=== PATIENT | male | born 1965 | race Caucasian/White ===

== ENCOUNTER 2017-05-23 10:32 | Observation (INO) | payer OTHER ==
[2017-05-23] VITALS (7 sets, daily range): BP systolic 163–192; BP diastolic 75–114
[~2017-05-23] VITALS: Ht 165.1 cm; Wt 60.6 kg
[~2017-05-23 10:32] MED LIST: MIRALAX17 GM/PACK PO
--- NOTE | 2017-05-23 10:40 | Emergency Room Report ---
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 N Clinical Suspician of Infection? N Mental Status: 1 - Regular (Normal Baseline) Sepsis Risk:Low Sepsis Risk Have you (or family members/close friends) recently traveled outside the [place]? N If Yes, where/when: Have you had exposure to infectious disease within the past month? TB? Other? Specify: Comment The patient is brought in by ambulance from the [facility]. He says he went there to get a note for missing work. He says that he has had a headache since yesterday and called into work because of that. No trauma or falls. No nausea or vomiting. No numbness or weakness. Today he has also gotten the shakes. He drinks 1 pint of alcohol a day and has not had any today, but says he normally does not get shaky when he does not drink. Does not use drugs. He is on 2 blood pressure medications. He says he ran out of one 2 weeks ago and therefore has only been taking 1 medication for the past 2 weeks. He is also on medication for depression. ALLERGIES Coded Allergies: No Known Allergies (05/23/17) Home Medications Reported Medications Lisinopril 10 MG PO DAILY #30 Propranolol Hcl (Inderal 20MG. Tablet) 20 MG PO TID #90 Polyethylene Glycol 3350 (Miralax) 17 GM PO Q48H History Medical History General Angina: No AL: No Hypertension? Yes Hyperlipidemia? No CHF? No COPD? No Asthma? No Hernia? Yes CVA? No Seizures? No Diabetes? No UTI? No Stones? No GB Disease: No Hepatitis? No Cataracts? No Glaucoma? No MRSA? No TB? No Cancer? No Immunization Hx Ped.Immunizations UTD Yes DT/Tetanus > 10 YRS Flu NEVER Pneumonia NEVER Surgical Hx Previous Surgery?N Family History Family Hx Diabetes No CAD No Hypertension Yes Hyperlipidemia No Cancer Yes TB No Social History Smoking Hx Smoker: Current Every Day Smoker Tobacco: Yes Type Cigarettes Packs/day < 1 Pack Alcohol Alcohol: Yes Review of Systems All Other Systems Reviewed and Negative Constitutional denies fever Respiratory denies shortness of breath Cardiovascular denies chest pain Gastrointestinal denies abdominal pain, denies nausea, denies vomiting Psychiatric/Neurological headache, tremors Physical Exam Vital Signs Vital Signs Date Time Temp Pulse Resp B/P Pulse O2 O2 Flow FiO2 Ox Delivery Rate 05/23 1456 98.3 67 18 169/75 99 05/23 1452 67 18 169/75 99 05/23 1423 18. 05/23 1415 90 18 172/81 97 05/23 1345 90 18 160/89 97 05/23 1227 76 18 161/98 97 05/23 1158 76 18 164/98 97 05/23 1126 76 18 205/116 97 05/23 1108 18 05/23 1055 76 18 195/137 97 05/23 1035 98.3 72 18 192/102 97 General Appearance very tremulous and restless Eye Exam - bilateral eye normal exam, bilateral eye PERRL, bilateral eye EOMI Ear, Nose, Throat hearing grossly normal, normal ENT inspection Neck normal inspection, non-tender, supple, full range of motion Respiratory Status Yes: trachea midline, chest symmetrical. No: respiratory distress. Lung Sounds bilateral: normal breath sounds, lungs clear. Cardiovascular normal exam, regular rate/rhythm, no peripheral edema, no gallop, no JVD, no murmur, no rub, normal peripheral pulses Peripheral Pulses Pulses normal Yes Gastrointestinal normal bowel sounds, normal exam, non tender, soft, no organomegaly Extremities non-tender, normal range of motion, normal inspection Neurologic alert, measurement coordinator II-XII nml as tested, normal exam, no motor/sensory deficits, oriented x 3 Mental status anxious Skin intact, normal color, warm/dry Medical Decision Making LABS/Meds/Orders Pt receiving controlled substance in ED? Yes Luis was queried for this patient? No Reason not queried - emergent pt cond=no time Results/Orders Laboratory Tests 05/23/17 1030: Sodium 134 L, Potassium 4.7, Chloride 96 L, Carbon Dioxide 28, BUN 21 H, Creatinine 0.9, Estimated Creat Clear 86, Estimated GFR (MDRD) 88, Glucose 123 H, Calcium 8.8, Total Bilirubin 0.7, AST 46 H, ALT 38, Alkaline Phosphatase 155 H, Creatine Kinase 57, CK-MB (CK-2) Rel Index 0.9, CK and CKMB Interp < 0.5, Troponin I < 0.02, Total Protein 9.0 H, Albumin 3.9, Globulin 5.1 H, Albumin/ Globulin Ratio 0.8 L, WBC 7.1, RBC 4.37 L, Hgb 14.2, Hct 42.1, MCV 96.4, RDW 13.7, Plt Count 36 *L, MPV 8.9, Gran % 78.1, Gran # 5.6, Lymphocytes % 12.5, Monocytes % 7.8, Eosinophils % 1.0, Basophils % 0.6, Lymphocytes # 0.9, Monocytes # 0.6, Eosinophils # 0.1, Basophils # 0.0, PUBS MCHC 33.7, MCH 32.5 H Current Medication Orders Sig/Zita Start time Last Medication Dose Route Stop Time Status Admin Oxazepam 15 MG Q6 05/25 0500 UNV PO Folic Acid 1 MG DAILY 05/24 0900 UNV PO 05/26 09 Lisinopril 10 MG DAILY 05/24 0900 UNV PO Multivitamins 1 EACH DAILY 05/24 0900 UNV PO Multivitamins 10 ML DAILY 05/24 0900 UNV Thiamine HCl 100 MG IV Magnesium Sulfate 2 GM Lactated Ringer's 1,000 ML Thiamine HCl 100 MG DAILY 05/24 0900 UNV PO 05/26 0901 Propranolol HCl 20 MG TID 05/23 2100 UNV PO Oxazepam 30 MG Q6 05/23 1700 UNV PO 05/25 1101 Folic Acid 1 MG ONCE ONE 05/23 1500 UNV PO 05/23 1501 Miscellaneous 1 UNIT ONCE ONE 05/23 1500 UNV Medication XX 05/23 1501 Nicotine 21 MG DAILYP PRN 05/23 1500 UNV TD Sodium Chloride 1,000 ML .Q10H 05/23 1500 UNV IV Sodium Chloride 10 ML PRN PRN 05/23 1500 UNV IV Lorazepam 0 .STK-MED ONE 05/23 1418 DC .ROUTE Lorazepam 1 MG ONCE ONE 05/23 1345 DC 05/23 IV 05/23 1346 1423 Lorazepam 0 .STK-MED ONE 05/23 1107 DC .ROUTE Lorazepam 1 MG ONCE ONE 05/23 1100 DC 05/23 IV 05/23 1101 1108 Sodium Chloride 10 ML PRN PRN 05/23 1045 AC IV 05/24 1039 Orders Procedure Date/time Status DIET-NOTHING BY MOUTH 05/23 L Complete DIET-REGULAR ( TOLERATED) 05/23 D Active Decision to admit 05/23 1424 Active ELECTROCARDIOGRAM REQUEST 05/[address] HEAD REQ 05/23 1039 Complete IV SALINE LOCK 05/23 1039 Active CBC WITH AUTO DIFF 05/23 1039 Complete CARDIAC ENZYMES 05/23 1039 Complete CHEM 12 PROFILE 05/23 1039 Complete ADMIT PATIENT 05/23 UNK Active 12 LEAD EKG-MACI (INITIAL) 05/23 UNK Active VITAL SIGNS 05/23 UNK Active IV SALINE LOCK 05/23 UNK Active INSTRUCT PT/FAMILY 05/23 UNK Active GEN NSG/PT REQ (NOT FOR MEDS!) 05/23 UNK Active CODE STATUS 05/23 UNK Active PATIENT ACTIVITY ORDER 05/23 UNK Active URINALYSIS/COMPLETE 05/23 UNK Active PROTIME/PARTIAL PROTIME 05/23 UNK Active PHOSPHORUS 05/23 UNK Active MAGNESIUM 05/23 UNK Active FOLIC ACID (FOLATE, SERUM) 05/23 UNK Active DRUG ABUSE SCREEN (TRIAGE) 05/23 UNK Active ALCOHOL 05/23 UNK Active CM/EKG CM/EKG Comments EKG interpreted by Arpan Reid MD: Rhythm: sinus Rate: 71 [place]: normal Ectopy: none Conduction: normal ST Segment Changes: none T Wave Changes: none Q Waves: none No evidence of acute ischemia or injury Baseline artifact and wander present, but I consider the EKG adequate for accurate interpretation. XRAY/CT/US XRAY/CT/US XRAY chest Comment Chest x-ray interpreted by Arpan Reid M.D. No infiltrate, pneumothorax, pleural effusion, or wide mediastinum. Calcified granulomas, no acute process CT head Comment CT scan interpreted by radiologist: Negative Progress - 1:45 PM: The patient feels better. Tremulousness almost completely gone. Blood pressure remains elevated. 2:20 PM: I have discussed the case with Dr. Canela who agrees to admit the patient to the hospital. We discussed the patient's clinical information, including history, exam, laboratory and radiology results and ED course. Per hospital procedure, I will write temporary bridge inpatient orders on the patient. Specific orders requested by the admitting physician: Serax withdrawal protocol. Rally pack. Hydration. Continue current blood pressure medications. Departure Departure Disposition Still a Patient Clinical Impression Primary Impression: Alcohol withdrawal Qualifiers: Complication of substance-induced condition: uncomplicated Qualified Code: F10.230 - Alcohol dependence with withdrawal, uncomplicated Secondary Impressions: Hypertension Qualifiers: Hypertension type: essential hypertension Qualified Code: I10 - Essential (primary) hypertension Noncompliance with medication regimen Condition STABLE ED Critical Care Critical Care No at 1876
[2017-05-23 10:45] LABS: HEMOGLOBIN 14.2 g/dL (14.1-18.0)
[2017-05-23 10:46] LABS: LYMPH # 0.9 K/mm3 (0.7-4.5); LYMPH % 12.5 % (10-50)
[2017-05-23] MEDS ORDERED: INDERAL 20MG. T20 MG PO (10:56)
[2017-05-23] MEDS ORDERED: LISINOPRIL10 MG PO (10:56)
[2017-05-23 11:05] LABS: BUN 21 mg/dL (7-18); GFR (ESTIMATED) 88 ML/MIN (>60)
--- NOTE | 2017-05-23 14:49 | RADIOLOGY REPORT PS360 ---
CT HEAD W/O CONTRAST HISTORY: Severe headache HYPERTENSIVE,HEADACHE ORDERING PHYSICIAN: Arpan Reid MD PATIENT AGE: 52 years COMPARISON: None TECHNIQUE: Axial images obtained without contrast. Brain and bone windows reviewed. FINDINGS: No midline shift, mass effect, intracranial hemorrhage, hydrocephalus, or extra-axial fluid collection is evident. There is mild generalized atrophy. No intra or extra-axial hemorrhage is evident. The calvarium has an unremarkable appearance. No mastoid effusion. The visualized paranasal sinuses are unremarkable. IMPRESSION: IMPRESSION: 1. No acute intracranial findings. 2. Mild prominence of the sulci suggesting volume loss/atrophy
--- NOTE | 2017-05-23 15:03 | RADIOLOGY REPORT PS360 ---
CHEST-PORTABLE HISTORY: Hypertension, smoker HEADACHE WITH HYPERTENSION ORDERING PHYSICIAN: Arpan Reid MD PATIENT AGE: 52 years COMPARISON: None available FINDINGS: Unremarkable heart size. Hyperinflation with attenuation of the peripheral pulmonary vessels consistent with COPD. There is evidence of old granulomatous disease with a calcified granuloma in the right lower lung zone and one in the left upper lobe. No acute bony anomalies. Probable nipple shadow left mid to lower lung zone IMPRESSION: COPD with old granulomatous disease
[2017-05-23] MEDS ORDERED: MIRTAZAPINE15 MG PO (15:40)
--- NOTE | 2017-05-23 16:00 | PHARMACY CLINIC NOTE ---
Patient Demographics Patient Demographics Admission date: 05/23/17 Date: 05/23/17 Time: 1559 Allergies Coded Allergies: No Known Allergies (05/23/17) HEIGHT- FT: 5 IN: 5.00 K.864 VTE General Information Labs: Laboratory Tests 05/23 1030 Hematology Hgb (14.1 - 18.0 g/dL) 14.2 Hct (42.0 - 52.0 %) 42.1 Plt Count (142 - 424 K/mm3) 36 *L Disclaimer The following section includes nursing documentation that has been pulled in for pharmacy review. Patient's VTE score: 1 Patient's VTE Risk: VERY LOW RISK Clinical trial participant? No VTE prophylaxis F [id number] VTE prophylaxis ordered? Yes Type of prophylaxis/treatment: PREM at [id number]
[2017-05-23 16:38] LABS: URINE BILIRUBIN - DIPSTICK NEGATIVE (NEG); URINE BLOOD TRACE-INTACT (NEG)
[2017-05-23 16:55] LABS: AMPHETAMINES/METAMPHETAMINES NEGATIVE ng/mL (<1000)
--- NOTE | 2017-05-23 17:47 | HISTORY AND PHYSICAL REPORT ---
Demographics: Admit date: 05/23/17 Chief complaint: High blood pressure PRIMARY DIAGNOSIS: ALCOHOL WITHDRAWAL Allergies: Coded Allergies: No Known Allergies (05/23/17) History of present illness: History of present illness: The patient is brought in by ambulance from the [facility]. He says he went there to get a note for missing work. He says that he has had a headache since yesterday and called into work because of that. No trauma or falls. No nausea or vomiting. No numbness or weakness. Today he has also gotten the shakes. He drinks 1 pint of alcohol a day and has not had any today, but says he normally does not get shaky when he does not drink. Does not use drugs. He is on 2 blood pressure medications. He says he ran out of one 2 weeks ago and therefore has only been taking 1 medication for the past 2 weeks. He is also on medication for depression. Above note per ER physician. When I discussed case with patient he states he's been off alcohol for about a week. Interestingly, his alcohol level remains detectable. Patient feels much better after some beta cherri, IV fluids and intravenous Ativan. Patient is eating supper vigorously. Past medical history: Family HX Diabetes No CAD No Hypertension Yes Hyperlipidemia No Cancer Yes TB No Immunization HX Ped.Immunizations UTD Yes DT/Tetanus > 10 YRS Flu NEVER Pneumonia NEVER TB Test in last year No General CAD? No Angina: No LA: No Hypertension? Yes Hyperlipidemia? No CHF? No DVT? No PE? No COPD? No Asthma? No Anemia? No GERD? No Gastric ulcers? No GI Bleed? No Hernia? Yes Thyroid Problems? No Hypothyroidism? No CVA? No Seizures? No Diabetes? No Renal Insuffiency? Yes UTI? No Stones? No BPH? No GB Disease: No Nephritic Syndrome? No Asplenia? No Hepatitis? No Sickle Cell Disease? No Arthritis? No Migraines? No Cataracts? No Glaucoma? No MRSA? No HIV? No TB? No Anxiety? No Depression? No Cancer? No More? Yes Additional hx: ALCOHOLIC Past Surgical HX Previous Surgery?Y BOWEL RESECTION Current home meds: Reported Medications Lisinopril 10 MG PO DAILY #30 Propranolol Hcl (Inderal 20MG. Tablet) 20 MG PO TID #90 Polyethylene Glycol 3350 (Miralax) 17 GM PO Q48H Mirtazapine 15 MG PO DAILY Social Hx: Smoking HX Tobacco Yes Type Cigarettes Packs/day 1 1/2 - 2 PACKS Are you/the child exposed to second-hand smoke: Yes Alcohol Alcohol: Yes How much do you drink 1 PINT For how long 2-5 Years When was your last drink 24-48 Hours Ago Hx of Drug Use Drug Use? No Patien't marital status is Patient's support system is good Review of systems: Constitutional malaise, weakness, other. No: fever. Respiratory No: no symptoms reported. Cardiovascular see HPI Gastrointestinal/Abdominal No no symptoms reported Genitourinary No: no symptoms reported. Musculoskeletal No: no symptoms reported. Neurological Yes: headache, tingling, tremors, weakness. Exam: Lab data for last 24 hours: Laboratory Tests 05/23/17 1625: Opiates Screen NEGATIVE, Urine Methadone Screen NEGATIVE, Barbiturates NEGATIVE, Phencyclidine Screen NEGATIVE, Amphetamines Screen NEGATIVE, Benzodiazepines Screen NEGATIVE, Cocaine Screen NEGATIVE, Marijuana (THC) Screen NEGATIVE, Urine Color DK YELLOW, Urine Appearance CLEAR, Urine pH 8.5, Ur Specific [place] 1.020 , Urine Protein 1+ H, Urine Ketones NEGATIVE, Urine Blood TRACE-INTACT, Urine Nitrate NEGATIVE, Urine Bilirubin NEGATIVE, Urine Urobilinogen 1.0, Ur Leukocyte Esterase NEGATIVE, Urine RBC OCC, Urine WBC OCC, Urine Bacteria 1+, Urine Mucus 1+, Urine Glucose NEGATIVE 05/23/17 1030: Phosphorus 3.3, Magnesium 1.4 05/23/17 1030: Sodium 134 L, Potassium 4.7, Chloride 96 L, Carbon Dioxide 28, BUN 21 H, Creatinine 0.9, Estimated Creat Clear 86, Estimated GFR (MDRD) 88, Glucose 123 H, Calcium 8.8, Total Bilirubin 0.7, AST 46 H, ALT 38, Alkaline Phosphatase 155 H, Creatine Kinase 57, CK-MB (CK-2) Rel Index 0.9, CK and CKMB Interp < 0.5, Troponin I < 0.02, Total Protein 9.0 H, Albumin 3.9, Globulin 5.1 H, Albumin/ Globulin Ratio 0.8 L, PT 10.2, INR 0.94, APTT 29.1, WBC 7.1, RBC 4.37 L, Hgb 14.2, Hct 42.1, MCV 96.4, RDW 13.7, Plt Count 36 *L, MPV 8.9, Gran % 78.1, Gran # 5.6, Lymphocytes % 12.5, Monocytes % 7.8, Eosinophils % 1.0, Basophils % 0.6, Lymphocytes # 0.9, Monocytes # 0.6, Eosinophils # 0.1, Basophils # 0.0, PUBS MCHC 33.7, MCH 32.5 H, Alcohols 15 Admission vital signs: 1ST Vital Signs Result Date Time Pulse Ox 97 05/23 1035 B/P 192/102 05/23 1035 Temp 98.3 05/23 1035 Pulse 72 05/23 1035 Resp 18 05/23 1035 O2 Delivery ROOM AIR 05/23 1551 Additional information: Patient alert, pleasant. Pulse rate regular. Vital signs noted. Lungs clear, abdomen soft. No stigmata of liver disease. Some tremulousness of the hands and tongue but apparently markedly better than admission. Plan: Problem List 1. Hypertension 2. Alcohol withdrawal 3. Noncompliance with medication regimen Plan: Admit to observation. Fluids, nutritional support with rally pack. [place] blood pressure therapy and benzodiazepine coverage. at [id number]
[2017-05-24 00:12] VITALS: BP 168/88
[2017-05-24 03:53] VITALS: BP 167/88
[2017-05-24 04:00] VITALS: BP 167/88
[2017-05-24 06:50] LABS: LYMPH # 0.9 K/mm3 (0.7-4.5); LYMPH % 27.7 % (10-50)
--- NOTE | 2017-05-24 07:38 | ACUTE CARE PROGRESS NOTE (QUA) ---
Progress Notes Subjective Date 05/24/17 Time 0737 Note Overall feels better with much less tremulousness. Eating breakfast well. Heart rate regular, lungs clear. Abdomen soft. Previously noted cachexia unchanged. Aberrant platelet count noted as below. Laboratory Tests 05/24/17 0600: Sodium 133 L, Potassium 4.2, Chloride 99, Carbon Dioxide 28, BUN 18, Creatinine 0.8, Estimated Creat Clear 90, Estimated GFR (MDRD) 101, Glucose 93, Calcium 8.2 L, Total Bilirubin 0.7, AST 48 H, ALT 31, Alkaline Phosphatase 132 H, Total Protein 7.1, Albumin 3.0 L, Globulin 4.1 H, Albumin/Globulin Ratio 0.7 L, WBC 3.2 L, RBC 3.86 L, Hct 37.7 L, MCV 97.5, RDW 13.2, Plt Count 21 *L, MPV 9.3, Gran % 58.8, Gran # 1.9, Lymphocytes % 27.7, Monocytes % 11.0 H, Eosinophils % 2.4, Basophils % 0.1, Lymphocytes # 0.9, Monocytes # 0.4, Eosinophils # 0.1, Basophils # 0.0, PUBS MCHC 32.9, MCH 32.1 H 05/23/17 1625: Opiates Screen NEGATIVE, Urine Methadone Screen NEGATIVE, Barbiturates NEGATIVE, Phencyclidine Screen NEGATIVE, Amphetamines Screen NEGATIVE, Benzodiazepines Screen NEGATIVE, Cocaine Screen NEGATIVE, Marijuana (THC) Screen NEGATIVE, Urine Color DK YELLOW, Urine Appearance CLEAR, Urine pH 8.5, Ur Specific [place] 1.020 , Urine Protein 1+ H, Urine Ketones NEGATIVE, Urine Blood TRACE-INTACT, Urine Nitrate NEGATIVE, Urine Bilirubin NEGATIVE, Urine Urobilinogen 1.0, Ur Leukocyte Esterase NEGATIVE, Urine RBC OCC, Urine WBC OCC, Urine Bacteria 1+, Urine Mucus 1+, Urine Glucose NEGATIVE 05/23/17 1030: Phosphorus 3.3, Magnesium 1.4 05/23/17 1030: Sodium 134 L, Potassium 4.7, Chloride 96 L, Carbon Dioxide 28, BUN 21 H, Creatinine 0.9, Estimated Creat Clear 86, Estimated GFR (MDRD) 88, Glucose 123 H, Calcium 8.8, Total Bilirubin 0.7, AST 46 H, ALT 38, Alkaline Phosphatase 155 H, Creatine Kinase 57, CK-MB (CK-2) Rel Index 0.9, CK and CKMB Interp < 0.5, Troponin I < 0.02, Total Protein 9.0 H, Albumin 3.9, Globulin 5.1 H, Albumin/ Globulin Ratio 0.8 L, PT 10.2, INR 0.94, APTT 29.1, WBC 7.1, RBC 4.37 L, Hgb 14.2, Hct 42.1, MCV 96.4, RDW 13.7, Plt Count 36 *L, MPV 8.9, Gran % 78.1, Gran # 5.6, Lymphocytes % 12.5, Monocytes % 7.8, Eosinophils % 1.0, Basophils % 0.6, Lymphocytes # 0.9, Monocytes # 0.6, Eosinophils # 0.1, Basophils # 0.0, PUBS MCHC 33.7, MCH 32.5 H, Alcohols 15 Objective Findings Last VS-Temp:98.2 B/P:167/88 Pulse:68 Resp:22 SaO2:99 ROOM AIR Last weight lbs:133 oz:9 K.583 Method:Bed Scales Assessment/Plan Problem List 1. Hypertension Qualifiers: Hypertension type: essential hypertension Qualified Code: I10 - Essential ( primary) hypertension 2. Alcohol withdrawal Qualifiers: Complication of substance-induced condition: uncomplicated Qualified Code: F10.230 - Alcohol dependence with withdrawal, uncomplicated 3. Noncompliance with medication regimen Patient condition Improving Plan: initiate discharge plan This inpt stay is expected to cross 2 MNs from start of care No at 0738
[2017-05-24 07:40] VITALS: BP 167/88; BP 170/95
[2017-05-24] MEDS ORDERED: LISINOPRIL10 MG PO (07:41)
[2017-05-24] MEDS ORDERED: INDERAL 20MG. T20 MG PO (07:41)
[2017-05-24] MEDS ORDERED: MIRTAZAPINE15 MG PO (07:41)
--- NOTE | 2017-05-24 07:41 | DISCHARGE SUMMARY STANDARD ---
Demographics Admit date: 05/23/17 Discharge date: 05/24/17 History of present illness History of present illness The patient is brought in by ambulance from the [facility]. He says he went there to get a note for missing work. He says that he has had a headache since yesterday and called into work because of that. No trauma or falls. No nausea or vomiting. No numbness or weakness. Today he has also gotten the shakes. He drinks 1 pint of alcohol a day and has not had any today, but says he normally does not get shaky when he does not drink. Does not use drugs. He is on 2 blood pressure medications. He says he ran out of one 2 weeks ago and therefore has only been taking 1 medication for the past 2 weeks. He is also on medication for depression. Above note per ER physician. When I discussed case with patient he states he's been off alcohol for about a week. Interestingly, his alcohol level remains detectable. Patient feels much better after some beta cherri, IV fluids and intravenous Ativan. Patient is eating supper vigorously. Hospital Course Hospital Course: Patient was watched overnight. He did well and ate well. He was given just a couple of doses of benzodiazepine and tolerated this very nicely. Tolerated fluids well. This morning I had a lengthy discussion with him about his current situation. His platelet count has dropped from 87 last year to 36/21 yesterday and today respectively. Fortunately INR is normal. He admits to me that he drank 1/2 pint on Sunday but even this small reduction in his alcohol use gave him shakes and tremors. I also discussed with him that I had planned to follow him up regularly in May 2016 but he never returned to my office. He states this is because "I was busy that day." Plan will be as follows: He does not wish to go to rehabilitation program because he would lose his job. I will see him in 2 days in my office on Sunday to avoid further work situation issues. I will re-prescribe his blood pressure pills and 6 diazepam tablets, 2 mg, to take twice a day to try to prevent tremors or shakes. He states that he has no alcohol at his home and he will try to refrain from buying more alcohol. His overall prognosis is very poor. 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 Discharge diagnoses Problem List 1. Hypertension 2. Alcohol withdrawal 3. Noncompliance with medication regimen Medications Medications: Discharge meds are as noted. Follow up Follow up in office in: 2 DAYS with: Pro Canela MD at 0740
[2017-05-24] MEDS ORDERED: VALIUM 2MG TABLE2 MG PO (07:42)
[2017-05-24 08:08] VITALS: BP 170/95
[2017-05-24 09:19] VITALS: BP 170/95
[2017-05-24 09:54] LABS: HEMOGLOBIN 12.4 g/dL (14.1-18.0)
--- OUTSIDE RECORDS SUMMARY | 2017-06-18 23:44 | External Medical Summary Rpt ---
Author Author ASHLYKALI [employer], [employer]ICHARD [employer] Organization [employer] Address Unknown Phone Unavailable Results CBC W Auto Differential panel in Blood Observa Value Referen Units Interpr Notes Date tion ce etation Range Basophils 0 - 0.2 K/MM3 Normal No Sep 14 informati 2017 6:00 [#/volume on in AM ] in source Blood by data Automated count Basophils 0.1 - 2.0 % Normal No Sep 14 /100 informati 2017 6:00 leukocyte on in AM s in source Blood by data Automated count Eosinophi 0.0 - 0.4 K/mm3 Normal No Sep 14 ls informati 2017 6:00 [#/volume on in AM ] in source Blood by data Automated count Eosinophi 0.1 - % Normal No Sep 14 ls/100 12.0 informati 2017 6:00 leukocyte on in AM s in source Blood by data Automated count Granulocy 1.3 - 8.0 K/mm3 Normal No Sep 14 maria elena informati 2017 6:00 [#/volume on in AM ] in source Blood by data Automated count Granulocy 37.0 - % Normal No Sep 14 maria elena/100 80.0 informati 2017 6:00 leukocyte on in AM s in source Blood by data Automated count Hematocri 42.0 - % Low No Sep 14 t [Volume 52.0 informati 2017 6:00 on in AM Fraction] source of Blood data Hemoglobi 14.1 - g/dL Low No Sep 14 n 18.0 informati 2017 6:00 [Mass/vol on in AM ume] in source Blood data Lymphocyt 0.7 - 4.5 K/mm3 Normal No Sep 14 es informati 2017 6:00 [#/volume on in AM ] in source Unspecifi data ed specimen by Automated count Lymphocyt 10 - 50 % Normal No Sep 14 es informati 2017 6:00 [#/volume on in AM ] in source Unspecifi data ed specimen by Automated count Erythrocy 27 - 31.2 pg High No Sep 14 te mean informati 2017 6:00 corpuscul on in AM ar source hemoglobi data n [Entitic mass] Erythrocy 31.8 - g/dl Normal No Sep 14 te mean 35.4 informati 2017 6:00 corpuscul on in AM ar source hemoglobi data n concentra tion [Mass/vol ume] by Automated count Erythrocy 82.2 - fl Normal No Sep 14 te mean 97.8 informati 2017 6:00 corpuscul on in AM ar volume source [Entitic data volume] by Automated count Monocytes 0.1 - 1.0 K/mm3 Normal No Sep 14 informati 2017 6:00 [#/volume on in AM ] in source Blood by data Automated count Monocytes 1.7 - 9.3 % High No Sep 14 /100 informati 2017 6:00 leukocyte on in AM s in source Blood by data Automated count Platelet 7.4 - fl Normal No Sep 14 mean 10.4 informati 2017 6:00 volume on in AM [Entitic source volume] data in Blood by Automated count Platelets 142 - 424 K/mm3 Low alert Sep 14 NOTIFICAT 2017 6:00 [#/volume ION AM ] in RESULT Blood Annabelle Jeffrey PLT CLUMPS SEEN ON MANUAL DIFF. PLT EST 20. [id number] previousl y reported as: 21 #*L K/mm3 NOTIFICAT ION RESULT Annabelle ne Erythrocy 4.6 - 6.2 M/mm3 Low No Sep 14 maria elena informati 2017 6:00 [#/volume on in AM ] in source Amniotic data fluid Erythrocy 11.5 - % Normal No Sep 14 te 17.5 informati 2017 6:00 distribut on in AM ion width source [Entitic data volume] by Automated count Leukocyte 4.8 - K/MM3 Low No Sep 14 s 10.8 informati 2017 6:00 [#/volume on in AM ] in source Blood data Comprehensive metabolic 2000 panel in Serum or Plasma Observa Value Referen Units Interpr Notes Date tion ce etation Range Albumin/G 1.1 - 1.8 No Low No Sep 14 lobulin informati informati 2017 6:00 [Mass on in on in AM ratio] in source source Serum or data data Plasma Albumin 3.4 - 5.0 gm/dL Low No Sep 14 [Mass/vol informati 2017 6:00 ume] in on in AM Serum or source Plasma data Alkaline 46 - 116 U/L High No Sep 14 phosphata informati 2017 6:00 se on in AM [Enzymati source c data activity/ volume] in Serum or Plasma Bilirubin 0.2 - 1.0 mg/dL Normal No Sep 14 .total informati 2017 6:00 [Mass/vol on in AM ume] in source Serum or data Plasma Urea 7 - 18 mg/dL Normal No Sep 14 nitrogen informati 2017 6:00 [Mass/vol on in AM ume] in source Serum or data Plasma Calcium 8.5 - mg/dL Low No Sep 14 [Mass/vol 10.1 informati 2017 6:00 ume] in on in AM Serum or source Plasma data Chloride 98 - 107 mmoL/L Normal No Sep 14 [Moles/vo informati 2017 6:00 lume] in on in AM Serum or source Plasma data Carbon 21.0 - mmoL/L Normal No Sep 14 dioxide, 32.0 informati 2017 6:00 total on in AM [Moles/vo source lume] in data Serum or Plasma Creatinin 0.70 - mg/dL Normal No Sep 14 e 1.30 informati 2017 6:00 [Mass/vol on in AM ume] in source Serum or data Plasma Creatinin 50 - 200 ML/MIN Normal No Sep 14 e renal informati 2017 6:00 clearance on in AM source predicted data by Cockcroft -Gault formula Estimated >60 ML/MIN No REFERENCE Sep 14 informati RANGE: 2017 6:00 glomerula on in >60 AM r source ML/MIN/1. filtratio data 73 SQUARE n rate METERSIf (GF this patient is -A merican, then multiply theresult by 1.210. Globulin 1.3 - 3.2 gm/dL High No Sep 14 [Mass/vol informati 2017 6:00 ume] in on in AM Serum source data Glucose 74 - 106 mg/dL Normal No Sep 14 [Mass/vol informati 2017 6:00 ume] in on in AM Serum or source Plasma data Potassium 3.5 - 5.1 mmoL/L Normal No Sep 14 informati 2017 6:00 [Moles/vo on in AM lume] in source Serum or data Plasma Sodium 136 - 145 mmoL/L Low No Sep 14 [Moles/vo informati 2017 6:00 lume] in on in AM Serum or source Plasma data Aspartate 15 - 37 U/L High No Sep 14 informati 2017 6:00 aminotran on in AM sferase source [Enzymati data c activity/ volume] in Serum or Plasma Alanine 12 - 78 U/L Normal No Sep 14 aminotran informati 2017 6:00 sferase on in AM [Enzymati source c data activity/ volume] in Serum or Plasma Protein 6.4 - 8.2 gm/dL Normal No Sep 14 [Mass/vol informati 2017 6:00 ume] in on in AM Serum or source Plasma data Drugs identified in Urine by Screen method Observa Value Referen Units Interpr Notes Date tion ce etation Range Collected by nurse? Y Hold specimen in OE? N Positive urine drug screen samples are stored for 7 days. Contact the Lab if confirmation of positives is needed. Ampheta NEGATIV <1000 ng/mL No No Sep 13 mine E informa informa 2017 [Presen tion in tion in 4:25 PM ce] in source source Urine data data by Screen method Barbitura <200 ng/mL No No Sep 13 maria elena informati informati 2017 4:25 [Mass/vol on in on in PM ume] in source source Urine by data data Screen method Benzodiaz 200 ng/mL ng/mL No No Sep 13 epines informati informati 2017 4:25 [Mass/vol on in on in PM ume] in source source Serum or data data Plasma by Screen method Cocaine <300 ng/g No No Sep 13 [Mass/vol informati informati 2017 4:25 ume] in on in on in PM Unspecifi source source ed data data specimen Methadone <300 ng/mL No No Sep 13 informati informati 2017 4:25 [Mass/vol on in on in PM ume] in source source Unspecifi data data ed specimen Opiates <300 ng/mL No No Sep 13 [Mass/vol informati informati 2017 4:25 ume] in on in on in PM Unspecifi source source ed data data specimen Phencycli <25 ng/mL No No Sep 13 dine informati informati 2017 4:25 [Mass/vol on in on in PM ume] in source source Unspecifi data data ed specimen 11-Hydr NEGATIV <50 ng/mL No No Sep 13 oxy E informa informa 2017 delta-9 tion in tion in 4:25 PM source source tetrahy data data drocann abinol [Presen ce] in Unspeci fied specime n Urinalysis dipstick W Reflex Microscopic panel in Urine Observa Value Referen Units Interpr Notes Date tion ce etation Range Collected by nurse? Y Hold specimen in OE? N Appeara CLEAR CLEAR No No No Sep 13 nce of informa informa informa 2017 Urine tion in tion in tion in 4:25 PM source source source data data data Bacteri 1+ O No No No Sep 13 a informa informa informa 2016 [Presen tion in tion in tion in 4:25 PM ce] in source source source Urine data data data sedimen t by Light microsc opy Bilirub NEGATIV NEG No No No Sep 13 in E informa informa informa 2016 [Presen tion in tion in tion in 4:25 PM ce] in source source source Urine data data data by Test strip Erythro TRACE-I NEG No No No Sep 13 cytes NTACT informa informa informa 2016 [Presen tion in tion in tion in 4:25 PM ce] in source source source Urine data data data Color DK YELLOW No No No Sep 13 of YELLOW informa informa informa 2016 Urine tion in tion in tion in 4:25 PM source source source data data data Glucose NEG No No No Sep 13 [Mass/vol informati informati informati 2016 4:25 ume] in on in on in on in PM Urine by source source source Test data data data strip Ketones NEGATIV NEG mg/dL No No Sep 13 E informa informa 2016 [Presen tion in tion in 4:25 PM ce] in source source Urine data data by Automat ed test strip Mucus NEGATIV NEG No No No Sep [Presen E informa informa informa 2017 ce] in tion in tion in tion in 4:25 PM Urine source source source sedimen data data data t by Light microsc opy Mucus 1+ NONE No No No Sep 13 [Presen informa informa informa 2016 ce] in tion in tion in tion in 4:25 PM Urine source source source sedimen data data data t by Light microsc opy Nitrite NEGATIV NEG No No No Sep 13 E informa informa informa 2017 [Presen tion in tion in tion in 4:25 PM ce] in source source source Urine data data data by Test strip pH of 5.0 - 8.5 No Normal No Sep 13 Urine informati informati 2017 4:25 on in on in PM source source data data Protein NEG mg/dL High No Sep 13 [Mass/vol informati 2017 4:25 ume] in on in PM Urine by source Automated data test strip Erythro OCC 0 rbc/hpf No No Sep 13 cytes informa informa 2017 [Presen tion in tion in 4:25 PM ce] in source source Urine data data sedimen t by Light microsc opy Specific 1.005 - No Normal No Sep 13 gravity 1.030 informati informati 2017 4:25 of Urine on in on in PM source source data data Urobili 1.0 NEG E.U./dL No No Sep 13 nogen informa informa 2016 [Presen tion in tion in 4:25 PM ce] in source source Urine data data by Test strip Leukocyte O wbc/hpf No No Sep 13 s informati informati 2017 4:25 [#/volume on in on in PM ] in source source Urine data data Urinalysis dipstick W Reflex Microscopic panel in Urine Observa Value Referen Units Interpr Notes Date tion ce etation Range Collected by nurse? Y Hold specimen in OE? N Appeara CLEAR CLEAR No No No Sep 13 nce of informa informa informa 2017 Urine tion in tion in tion in 4:25 PM source source source data data data Bilirub NEGATIV NEG No No No Sep 13 in E informa informa informa 2016 [Presen tion in tion in tion in 4:25 PM ce] in source source source Urine data data data by Test strip Erythro TRACE-I NEG No No No Sep 13 cytes NTACT informa informa informa 2016 [Presen tion in tion in tion in 4:25 PM ce] in source source source Urine data data data Color DK YELLOW No No No Sep 13 of YELLOW informa informa informa 2017 Urine tion in tion in tion in 4:25 PM source source source data data data Glucose NEG No No No Sep 13 [Mass/vol informati informati informati 2017 4:25 ume] in on in on in on in PM Urine by source source source Test data data data strip Ketones NEGATIV NEG mg/dL No No Sep 13 E informa informa 2016 [Presen tion in tion in 4:25 PM ce] in source source Urine data data by Automat ed test strip Mucus NEGATIV NEG No No No Sep 13 [Presen E informa informa informa 2016 ce] in tion in tion in tion in 4:25 PM Urine source source source sedimen data data data t by Light microsc opy Nitrite NEGATIV NEG No No No Sep 13 E informa informa informa 2016 [Presen tion in tion in tion in 4:25 PM ce] in source source source Urine data data data by Test strip pH of 5.0 - 8.5 No Normal No Sep 13 Urine informati informati 2017 4:25 on in on in PM source source data data Protein NEG mg/dL High No Sep 13 [Mass/vol informati 2017 4:25 ume] in on in PM Urine by source Automated data test strip Specific 1.005 - No Normal No Sep 13 gravity 1.030 informati informati 2017 4:25 of Urine on in on in PM source source data data Urobili 1.0 NEG E.U./dL No No Sep 13 nogen informa informa 2016 [Presen tion in tion in 4:25 PM ce] in source source Urine data data by Test strip Folate [Mass/volume] in Serum or Plasma Observa Value Referen Units Interpr Notes Date tion ce etation Range Folate >3.0 ng/mL No A serum Sep 13 [Mass/vol informati folate 2016 ume] in on in concentra 10:30 AM Serum or source tion of Plasma data less than 3.1 ng/mL isconside red to represent clinical deficienc y.Perform ed at: - [facility] [address] [id number] Account Coordinator: Benigno Núñez PhD, Phone: [phone] PT & aPTT panel in Platelet poor plasma by Coagulation assay Observa Value Referen Units Interpr Notes Date tion ce etation Range INR in 0.9 - 1.1 No Normal INDICATIO Sep 13 Blood by informati N 2017 Coagulati on in 10:30 AM on assay source INR data RANGETHER APY FOR DVT, PE, ATRIAL FIB; 2.0 - 3.0PROPHY LAXIS FOR VTETHERAP Y FOR MECHANICA L HEART 2.5 - 3.5VALVE; PREVENTIO N OF SYSTEMICE MBOLISM SECONDARY TO AMI Prothromb 9.4 - SECONDS Normal No Sep 13 in time 11.8 inform2016 (PT) in on in 10:30 AM Platelet source poor data plasma by Coagulati on assay Activated 23.6 - SECONDS Normal No Sep 13 partial 34.0 inform2016 thrombpla on in 10:30 AM stin time source (aPTT) data in Platelet poor plasma by Coagulati on assay Ethanol [Mass/volume] in Serum or Plasma Observa Value Referen Units Interpr Notes Date tion ce etation Range Ethanol 0 - 99 mg/dL Normal ANY Sep 13 [Mass/vol ALCOHOL > 2017 ume] in OR = 80 10:30 AM Serum or MG/DL IS Plasma CONSIDERE D LEGALLYIN TOXICATED UNDER [place] [employer] LAW. Magnesium [Moles/volume] in Unspecified specimen Observa Value Referen Units Interpr Notes Date tion ce etation Range Magnesium 1.4 - 2.2 mg/dL Normal No Sep 13 inform2016 [Moles/vo on in 10:30 AM lume] in source Unspecifi data ed specimen Phosphate [Moles/volume] in Unspecified specimen Observa Value Referen Units Interpr Notes Date tion ce etation Range Phosphate 2.4 - 4.9 mg/dL Normal No Sep 13 inform2016 [Moles/vo on in 10:30 AM lume] in source Unspecifi data ed specimen CBC W Auto Differential panel in Blood Observa Value Referen Units Interpr Notes Date tion ce etation Range Basophils 0 - 0.2 K/MM3 Normal No Sep 13 inform2016 [#/volume on in 10:30 AM ] in source Blood by data Automated count Basophils 0.1 - 2.0 % Normal No Sep 13 /100 inform2016 leukocyte on in 10:30 AM s in source Blood by data Automated count Eosinophi 0.0 - 0.4 K/mm3 Normal No Sep 13 ls inform2016 [#/volume on in 10:30 AM ] in source Blood by data Automated count Eosinophi 0.1 - % Normal No Sep 13 ls/100 12.0 inform2016 leukocyte on in 10:30 AM s in source Blood by data Automated count Granulocy 1.3 - 8.0 K/mm3 Normal No Sep 13 maria elena inform2016 [#/volume on in 10:30 AM ] in source Blood by data Automated count Granulocy 37.0 - % Normal No Sep 13 maria elena/100 80.0 inform2016 leukocyte on in 10:30 AM s in source Blood by data Automated count Hematocri 42.0 - % Normal No Sep 13 t [Volume 52.0 informati 2016 on in 10:30 AM Fraction] source of Blood data Hemoglobi 14.1 - g/dL Normal No Sep 13 n 18.0 inform2016 [Mass/vol on in 10:30 AM ume] in source Blood data Lymphocyt 0.7 - 4.5 K/mm3 Normal No Sep 13 es inform2016 [#/volume on in 10:30 AM ] in source Unspecifi data ed specimen by Automated count Lymphocyt 10 - 50 % Normal No Sep 13 es inform2016 [#/volume on in 10:30 AM ] in source Unspecifi data ed specimen by Automated count Erythrocy 27 - 31.2 pg High No Sep 13 te mean inform2016 corpuscul on in 10:30 AM ar source hemoglobi data n [Entitic mass] Erythrocy 31.8 - g/dl Normal No Sep 13 te mean 35.4 inform2016 corpuscul on in 10:30 AM ar source hemoglobi data n concentra tion [Mass/vol ume] by Automated count Erythrocy 82.2 - fl Normal No Sep 13 te mean 97.8 informati 2016 corpuscul on in 10:30 AM ar volume source [Entitic data volume] by Automated count Monocytes 0.1 - 1.0 K/mm3 Normal No Sep 13 inform2016 [#/volume on in 10:30 AM ] in source Blood by data Automated count Monocytes 1.7 - 9.3 % Normal No Sep 13 /100 informati 2017 leukocyte on in 10:30 AM s in source Blood by data Automated count Platelet 7.4 - fl Normal No Sep 13 mean 10.4 informati 2016 volume on in 10:30 AM [Entitic source volume] data in Blood by Automated count Platelets 142 - 424 K/mm3 Low alert Sep 13 NOTIFICAT 2017 [#/volume ION 10:30 AM ] in RESULT Blood Annabelle Murphy PLT CLUMPS SEEN. MANUAL PLT EST: 4009 [id number] 1109:PLT previousl y reported as: 36 #*L K/mm3 NOTIFICAT ION RESULT Annabelle alva Erythrocy 4.6 - 6.2 M/mm3 Low No Sep 13 maria elena inform2016 [#/volume on in 10:30 AM ] in source Amniotic data fluid Erythrocy 11.5 - % Normal No Sep 13 te 17.5 informati 2016 distribut on in 10:30 AM ion width source [Entitic data volume] by Automated count Leukocyte 4.8 - K/MM3 Normal No Sep 13 s 10.8 informati 2016 [#/volume on in 10:30 AM ] in source Blood data CBC W Auto Differential panel in Blood Observa Value Referen Units Interpr Notes Date tion ce etation Range Basophils 0 - 0.2 K/MM3 Normal No Sep 13 inform2016 [#/volume on in 10:30 AM ] in source Blood by data Automated count Basophils 0.1 - 2.0 % Normal No Sep 13 /100 inform2016 leukocyte on in 10:30 AM s in source Blood by data Automated count Eosinophi 0.0 - 0.4 K/mm3 Normal No Sep 13 ls inform2016 [#/volume on in 10:30 AM ] in source Blood by data Automated count Eosinophi 0.1 - % Normal No Sep 13 ls/100 12.0 inform2016 leukocyte on in 10:30 AM s in source Blood by data Automated count Granulocy 1.3 - 8.0 K/mm3 Normal No Sep 13 maria elena inform2016 [#/volume on in 10:30 AM ] in source Blood by data Automated count Granulocy 37.0 - % Normal No Sep 13 maria elena/100 80.0 informati 2016 leukocyte on in 10:30 AM s in source Blood by data Automated count Hematocri 42.0 - % Normal No Sep 13 t [Volume 52.0 informati 2016 on in 10:30 AM Fraction] source of Blood data Hemoglobi 14.1 - g/dL Normal No Sep 13 n 18.0 inform2016 [Mass/vol on in 10:30 AM ume] in source Blood data Lymphocyt 0.7 - 4.5 K/mm3 Normal No Sep 13 es inform2016 [#/volume on in 10:30 AM ] in source Unspecifi data ed specimen by Automated count Lymphocyt 10 - 50 % Normal No Sep 13 es inform2016 [#/volume on in 10:30 AM ] in source Unspecifi data ed specimen by Automated count Erythrocy 27 - 31.2 pg High No Sep 13 te mean inform2016 corpuscul on in 10:30 AM ar source hemoglobi data n [Entitic mass] Erythrocy 31.8 - g/dl Normal No Sep 13 te mean 35.4 inform2016 corpuscul on in 10:30 AM ar source hemoglobi data n concentra tion [Mass/vol ume] by Automated count Erythrocy 82.2 - fl Normal No Sep 13 te mean 97.8 inform2016 corpuscul on in 10:30 AM ar volume source [Entitic data volume] by Automated count Monocytes 0.1 - 1.0 K/mm3 Normal No Sep 13 inform2016 [#/volume on in 10:30 AM ] in source Blood by data Automated count Monocytes 1.7 - 9.3 % Normal No Sep 13 /100 inform2016 leukocyte on in 10:30 AM s in source Blood by data Automated count Platelet 7.4 - fl Normal No Sep 13 mean 10.4 inform2016 volume on in 10:30 AM [Entitic source volume] data in Blood by Automated count Platelets 142 - 424 K/mm3 Low alert Sep 13 NOTIFICAT 2016 [#/volume ION 10:30 AM ] in RESULT Blood Annabelle nida Erythrocy 4.6 - 6.2 M/mm3 Low No Sep 13 maria elena inform2016 [#/volume on in 10:30 AM ] in source Amniotic data fluid Erythrocy 11.5 - % Normal No Sep 13 te 17.5 informati 2016 distribut on in 10:30 AM ion width source [Entitic data volume] by Automated count Leukocyte 4.8 - K/MM3 Normal No Sep 13 s 10.8 informati 2016 [#/volume on in 10:30 AM ] in source Blood data
--- OUTSIDE RECORDS SUMMARY | 2017-06-18 23:44 | External Medical Summary Rpt ---
Author Author [employer] Organization [employer] Address Unknown Phone Unavailable Purpose Continuity of Care Document - through 2016
--- OUTSIDE RECORDS SUMMARY | 2017-06-18 23:44 | External Medical Summary Rpt ---
Demographics Preferred Language Macedonian Marital Status Unknown Shinto Affiliation Unknown Race Unknown Ethnic Group Unknown Author Author RICHARD Address Unknown Phone Immunization No patient found.
--- OUTSIDE RECORDS SUMMARY | 2017-06-18 23:44 | External Medical Summary Rpt ---
[...] clinical deficienc y.Perform ed at: - [facility] [address] [id number] Commissioning Manager: Benigno Núñez PhD, Phone: [phone] PT & aPTT panel in Platelet [...] IS Plasma CONSIDERE D LEGALLYIN TOXICATED UNDER [place] [employer] LAW. Magnesium [Moles/volume] in Unspecified specimen Observa [...]
--- OUTSIDE RECORDS SUMMARY | 2017-06-18 23:44 | External Medical Summary Rpt ---
Demographics Preferred Language [place] Islander Marital Status Unknown Catholic Affiliation Unknown Race Unknown Ethnic Group Unknown Author Author RICHARD Address Unknown Phone Immunization No patient found.
--- OUTSIDE RECORDS SUMMARY | 2017-06-18 23:44 | External Medical Summary Rpt ---
Author Author , RICHARD Peña RICHARD Address Unknown Phone [email or web address] Purpose Continuity of Care Document - 05-23-2017 through 2016 Problems Code Diagnosis DOS Provider Status F10.239 ALCOHOL DEPENDENCE WITH WITHDRAWAL, UNSPECIFIED I10 ESSENTIAL (PRIMARY) HYPERTENSIO N Z91.14 PATIENT'S OTHER NONCOMPLIAN CE WITH MEDICATION REGIMEN Results Labs Lab Lab Date Result Refere Interp Status Commen Order Detail nces retati t Range on Drugs identified in Urine by Screen method (05-23-2017 16:25) Ampheta NEGATIV <1000 complet mine 017 E ed [Presen 16:25 ce] in Urine by Screen method 11-Hydr NEGATIV <50 complet oxy 017 E ed delta-9 16:25 tetrahy drocann abinol [Presen ce] in Unspeci fied specime n Urinalysis dipstick W Reflex Microscopic panel in Urine (05-23-2017 16:25) Bacteri 1+ O complet a 017 ed [Presen 16:25 ce] in Urine sedimen t by Light microsc opy Mucus 1+ NONE complet [Presen 017 ed ce] in 16:25 Urine sedimen t by Light microsc opy Erythro OCC 0 complet cytes 017 ed [Presen 16:25 ce] in Urine sedimen t by Light microsc opy Urinalysis dipstick W Reflex Microscopic panel in Urine (05-23-2017 16:25) Appeara CLEAR CLEAR complet nce of 017 ed Urine 16:25 Bilirub NEGATIV NEG complet in 017 E ed [Presen 16:25 ce] in Urine by Test strip Erythro TRACE-I NEG complet cytes 017 NTACT ed [Presen 16:25 ce] in Urine Color DK YELLOW complet of 017 YELLOW ed Urine 16:25 Ketones NEGATIV NEG complet 017 E ed [Presen 16:25 ce] in Urine by Automat ed test strip Mucus NEGATIV NEG complet [Presen 017 E ed ce] in 16:25 Urine sedimen t by Light microsc opy Nitrite NEGATIV NEG complet 017 E ed [Presen 16:25 ce] in Urine by Test strip Urobili 1.0 NEG complet nogen 017 ed [Presen 16:25 ce] in Urine by Test strip
--- OUTSIDE RECORDS SUMMARY | 2017-06-18 23:44 | External Medical Summary Rpt ---
Author Author , RICHARD Peña RICHARD Address Unknown Phone [email or web address] Purpose Continuity of Care Document - 05-23-2017 [...]
--- OUTSIDE RECORDS SUMMARY | 2017-06-19 02:07 | External Medical Summary Rpt ---
Demographics Preferred Language Mozambican Marital Status Unknown Synagogue Affiliation Unknown Race Unknown Ethnic Group Unknown Author Author RICHARD Address Unknown Phone Immunization No patient found.
--- OUTSIDE RECORDS SUMMARY | 2017-06-19 02:07 | External Medical Summary Rpt ---
Author Author , RICHARD Peña RICHARD Address Unknown Phone [email or web address] Purpose Continuity of Care Document - 05-23-2017 through 2016 Results Labs Lab Lab Date Result Refere [...]
--- OUTSIDE RECORDS SUMMARY | 2017-06-19 02:07 | External Medical Summary Rpt ---
Author Author , RICHARD Peña RICHARD Address Unknown Phone [email or web address] Purpose Continuity of Care Document - 05-23-2017 [...]
--- OUTSIDE RECORDS SUMMARY | 2017-06-19 02:07 | External Medical Summary Rpt ---
Demographics Preferred Language Swedish Marital Status Unknown Buddhist Affiliation Unknown Race Unknown Ethnic Group Unknown Author Author RICHARD Address Unknown Phone Immunization No patient found.
== END 2017-05-24 09:20 | disposition home or self-care (01) ==
LOC: ER 10:32 → 2ND 14:24
PROVIDERS: Emergency Medicine; Internal Medicine Adolescent Medicine
DX: F10.239 Alcohol dependence with withdrawal, unspecified (principal); I10 Essential (primary) hypertension; Z91.120 Patient's intentional underdosing of medication regimen due to financial hardship
CPT/HCPCS: G0378